=== PATIENT | male | born 1990 | race Caucasian/White ===

== ENCOUNTER 2019-03-21 10:36 | Emergency (ER) | payer SELFPAY ==
[2019-03-21] MEDS ORDERED: Ondansetron PF 4 MG/2 ML Vial ONE (11:09)
[2019-03-21] MEDS ORDERED: Ketorolac Tromethamine 30 MG/ML VIAL ONE (11:09)
[2019-03-21 11:20] LABS: #Basophils 0.1 thou/uL (0.0-0.2); #Eosinphils 0.1 thou/uL (0.0-0.7); #Neutrophils 15.4 thou/uL (1.40-6.50); %Basophils 0.3 % (0.0-1.0); %Eosinophils 0.5 % (0.0-10.0); %Lymphocytes 10.9 % (21.0-51.0); %Monocytes 5.5 % (0.0-10.0); %Neutrophils 82.8 % (42.0-75.0); Hemoglobin 16.1 g/dL (14.0-18.0); Mean Corpuscular HGB CONC 33.8 g/dL (32.0-36.0); Mean Corpuscular Hemoglobin 28.5 pg (27.0-31.0); Mean Corpuscular Volume 84.4 fL (78.0-98.0); Mean Platelet Volume 7.7 fL (7.4-10.4); Platelet Count 222 thou/uL (130-400); RBC Distribution Width 11.7 % (11.5-14.5); Red Blood Cell (RBC) Count 5.65 mill/uL (4.70-6.10); White Blood Cell (WBC) Count 18.6 thou/uL (4.8-10.8)
[2019-03-21 11:42] LABS: ALT (SGPT) 27 U/L (8-55); AST (SGOT) 21 U/L (5-34); Albumin 4.4 g/dL (3.5-5.0); Alkaline Phosphatase 48 U/L (40-150); Anion Gap 13 mmol/L (10-20); BUN (Urea Nitrogen) 12 mg/dL (8.9-20.6); Bilirubin, Total 1.5 mg/dL (0.2-1.2); Calc. Creatinine Clearance 0 mL/min (70-130); Calcium 9.4 mg/dL (7.8-10.44); Carbon Dioxide 25 mmol/L (22-29); Chloride 102 mmol/L (98-107); Estimated GFR-MDRD 71; Globulin 3.1 g/dL (2.4-3.5); Glucose 98 mg/dL (70-105); Lipase 9 U/L (8-78); Potassium 3.6 mmol/L (3.5-5.1); Protein, Total 7.5 g/dL (6.0-8.3); Sodium 136 mmol/L (136-145)
[2019-03-21] MEDS ORDERED: ISOVUE-370 76%-LOCM 1 ML ONE (12:35)
[2019-03-21 12:40] LABS: Bilirubin Negative (Negative); Blood, Urine 1+ (Negative); Clarity Clear (Clear); Glucose, Urine (Dipstick) Normal (Negative); Leukocyte Negative Leu/uL (Negative); Nitrite Negative (Negative); Protein, Urine (Dipstick) 30 mg/dL (Neg-Trace); Squamous Epithelial None Seen HPF (0-3); Urobilinogen Normal mg/dL (Less than 2); WBC/HPF 0-3 HPF (0-3)
[2019-03-21 12:41] LABS: Bacteria/HPF 1+ HPF (None Seen)
--- NOTE | 2019-03-21 13:06 | CT ---
ABDOMEN CT WITH CONTRAST PELVIC CT WITH CONTRAST: HISTORY: Acute abdominal pain and vomiting x 1 day. COMPARISON: None. FINDINGS: ABDOMEN CT: Dependent atelectatic changes of the lung bases. There are alveolar opacities in the left lower lobe likely due to infiltrate. Portal vein is patent. Gallbladder is unremarkable. In the posterior segment of the right hepatic l obe is a 0.9 cm wedge-shaped hypodensity. The lesion cannot be further characterized. Correlate for possible small hepatic parenchymal infarction. Spleen, pancreas, and adrenal glands have appropriat e enhancement and attenuation. No gastrohepatic, retrocrural, or periportal lymphadenopathy. Symmetric enhancement of the kidneys. Bilaterally, no obstructive uropathy. There are mildly enlarged retroperitoneal lymph nodes. [employer] aortocaval lymph node measures 1.0 x 1.0 cm. No mesenteric mass, lymphadenopathy, free air, or fluid. There are some upper normal scattered mesen teric lymph nodes which are nonspecific. Limited evaluation of the alimentary canal by the lack of contrast. No evidence of bowel obstruction . There is a slight swirling of vessels in the left upper quadrant mesentery. Correlate for an inco mplete internal hernia. Ileocecal junction is unremarkable. Normal-caliber appendix. The colonic m ucosa is decompressed. Mucosal prominence is likely due to inadequate distention. CT PELVIS: No mass, lymphadenopathy, free air, or free fluid. The urinary bladder is unremarkable. OSSEOUS STRUCTURES: There are no lytic or blastic lesions. IMPRESSION: 1. Upper normal mesenteric lymph nodes as well as retroperitoneal lymphadenopathy. Correlate for in fectious, inflammatory, or reactive process. A primary neoplasm of the lymph nodes cannot be entirel y excluded. 2. Wedge-shaped hyperdensity in the posterior segment of the right hepatic lobe too small to further characterize. A small cortical infarct cannot be entirely excluded. 3. Opacities in the left lower lobe may represent infiltrate. Correlate for aspiration versus pneum onia. Continued surveillance is recommended. 4. Correlate for possible internal hernia without associated obstruction. POS: [facility]
== END 2019-03-21 13:16 | disposition home or self-care (01) ==
LOC: ERS 10:36
DX: K52.9 Noninfective gastroenteritis and colitis, unspecified (principal)
CPT/HCPCS: 36415; 74177; 80053; 81003; 81015; 83690; 85025; 96361; 96374; 96375; J1885; J2405

== ENCOUNTER 2020-10-20 10:12 | Outpatient (CLI) | payer BC | END 2020-10-20 10:13 | disposition home or self-care (01) | LOC: BICRAD 10:12 | PROVIDERS: ATTEND Family Medicine | DX: J18.9 Pneumonia, unspecified organism (principal); R91.8 Other nonspecific abnormal finding of lung field; I51.7 Cardiomegaly | CPT/HCPCS: 71046 ==